=== PATIENT | female | born 1980 | race Caucasian/White ===

== ENCOUNTER 2017-02-27 21:11 | Emergency (ER) | payer OTHER ==
[~2017-02-27] VITALS: Ht 152.4 cm; Wt 69.8 kg
[2017-02-27 21:27] VITALS: Ht 152.4 cm; Wt 69.8 kg
[2017-02-28 06:00] VITALS: BP 121/70
== END 2017-02-28 06:00 | disposition home or self-care (01) ==
LOC: ED 21:11
DX: F41.9 Anxiety disorder, unspecified (principal); Z88.8 Allergy status to other drugs, medicaments and biological substances
CPT/HCPCS: Q0092